=== PATIENT | female | born 1995 | race Caucasian/White ===

== ENCOUNTER 2019-11-12 19:11 | Emergency (ER) | payer BC, OTHER ==
--- NOTE | 2019-11-12 19:47 | TELE ---
HPI Do you have fever,cough or shortness of breath?: Yes - General Reason For Visit: COVID test Time Seen by Provider: 11/12/19 19:47 History Source: Patient Exam Limitations: Clinical Condition - History of Present Illness Timing/Duration: unsure Associated Symptoms: reports: denies symptoms. denies: cough, fever/chills, nausea/vomiting 11/12/19 19:47 Patient with no significant past medical history presented to [facility] urgent care for COVID testing due to exposure to somebody that tested positive for chlamydia few days ago. Patient reported having loose stools. Patient report having cardiac history and feels she is high risk and wants to make sure she does not have COVID. Denies fever, chills, cough, shortness of breath, dizziness, chest pains. Denies any other symptoms Review of Systems - Review of Systems Able to Perform ROS?: Yes Limited Turkmen proficient: No Constitutional: No: Chills, Fever, Malaise HEENTM: No: Symptoms Reported, See HPI, Eye Pain, Blurred Vision, Tearing, Recent change in vision, Double Vision, Cataracts, Ear Pain, Ocular Prothesis, Ear Discharge, Nose Pain, Nose Congestion, Tinnitus, Nose Bleeding, Hearing Loss, Throat Pain, Throat Swelling, Mouth Pain, Dental Problems, Difficulty Swallowing, Mouth Swelling, Other Respiratory: No: Symptoms reported, See HPI, Cough, Orthopnea, Shortness of Breath, SOB with Exertion, SOB at Rest, Stridor, Wheezing, Productive cough, Hemoptysis, Other Cardiac (ROS): No: Symptoms Reported, See HPI, Chest Pain, Edema, Irregular Heart Rate, Lightheadedness, Palpitations, Syncope, Chest Tightness, Other ABD/GI: Yes: Symptoms Reported, See HPI, Diarrhea (loose stools). No: Abd. Pain w/ defecation, Blood Streaked Bowels, Difficulty Swallowing, Nausea, Vomiting, Indigestion, Abdominal cramping Musculoskeletal: No: Symptoms Reported Integumentary: No: Symptoms Reported Neurological: No: Symptoms reported, Headache, Dizziness All Other Systems: Reviewed and Negative *Physical Exam - Physical Exam General Appearance: Yes: Nourished, Appropriately Dressed. No: Apparent Distress HEENT: positive: Normal ENT Inspection Respiratory/Chest: negative: Respiratory Distress, Accessory Muscle Use Musculoskeletal: positive: Normal Inspection Extremity: positive: Normal Capillary Refill, Normal Inspection, Normal Range of Motion Neurologic: positive: Fully Oriented, Alert, Normal Mood/Affect, Normal Response - Medical Decision Making 11/12/19 19:49 Patient with no significant past medical history presented to [facility] urgent care for COVID testing due to exposure to somebody that tested positive for chlamydia few days ago. Patient reported having loose stools. Patient report having cardiac history and feels she is high risk and wants to make sure she does not have COVID. Denies fever, chills, cough, shortness of breath, dizziness, chest pains. Denies any other symptoms Patient afebrile at this time with no respiratory symptoms. Discussed with patient self quarantine instructions until negative covid test or for at least a week. Covid test ordered as per patient's request. Patient to go to [facility] drive[facility]through testing center today for covid test. Patient stable for discharge Discharge Diagnosis at time of Disposition: Encounter by telehealth for suspected COVID-19 - Referrals Follow-up Referral(s): Xochitl Crandall MD [Primary Care Provider] - - Patient Instructions Discharge Instructions: [facility]on[facility] Instructions, [facility] COVID-19 Isolation Protocol - Discharge Disposition: HOME Condition at time of Disposition: Stable
== END 2019-11-12 19:51 | disposition home or self-care (01) ==
LOC: JVIRT 19:11
DX: Z03.818 Encounter for observation for suspected exposure to other biological agents ruled out (principal)
CPT/HCPCS: Q3014-GT; U0003

== ENCOUNTER 2019-11-18 17:26 | Emergency (ER) | payer BC ==
--- NOTE | 2019-11-18 17:50 | TELE ---
HPI Do you have fever,cough or shortness of breath?: No - General History Source: Patient Exam Limitations: No Limitations - History of Present Illness Timing/Duration: unsure Severity: reports: mild Associated Symptoms: reports: other (sore throat) 11/18/19 17:49 24-year-old female with no past medical history except for cardiac arrhythmias presents to ED with complaints of mild sore throat. Patient is concerned since she was exposed to someone who just tested positive for COVID yesterday while at work on Tuesday. Patient has no other complaints. No meds taken. Past History - Travel History Traveled outside of the country in the last 30 days: No Close contact w/someone who was outside of country & ill: No - Medical History Cardiac Disorders: Yes (arrthymia) - Psycho-Social/Smoking History Patient Lives Alone: No Lives with/in: parents Review of Systems - Review of Systems Able to Perform ROS?: Yes Constitutional: No: Symptoms Reported HEENTM: Yes: Throat Pain Respiratory: No: Symptoms reported Cardiac (ROS): No: Symptoms Reported ABD/GI: No: Symptoms Reported : No: Symptoms Reported Musculoskeletal: No: Symptoms Reported Integumentary: No: Symptoms Reported Neurological: No: Symptoms reported *Physical Exam - Physical Exam General Appearance: Yes: Nourished, Appropriately Dressed. No: Apparent Distress HEENT: positive: EOMI. negative: Pharyngeal Erythema ( Limited exam) Neck: negative: Decreased range of motion Respiratory/Chest: negative: Respiratory Distress Gastrointestinal/Abdominal: negative: Distended Extremity: positive: Normal Inspection Integumentary: positive: Normal Color Neurologic: positive: Motor Strength 5/5 (Ambulatory) - Medical Decision Making 11/18/19 17:49 Chief complaint: Patient states was working with someone who tested positive yesterday. Patient states was exposed to patient on Tuesday and complaining of mild sore throat since yesterday. No medical history. Exam: Limited but normal PE. Plan COVID test ordered. Discharge Diagnosis at time of Disposition: Encounter for screening laboratory testing for COVID-19 virus - Referrals - Patient Instructions - Discharge Disposition: HOME Condition at time of Disposition: Good
== END 2019-11-18 17:50 | disposition home or self-care (01) ==
LOC: JVIRT 17:26 → EDSTATUS 17:30 → JVIRT 17:50
DX: Z11.59 Encounter for screening for other viral diseases (principal)
CPT/HCPCS: Q3014-GT; U0003